=== PATIENT | female | born 1950 | race Caucasian/White ===

== ENCOUNTER 2018-06-20 06:24 | Day surgery (SDC) | payer MEDICARE, OTHER ==
[2018-06-19 12:06] LABS: BASOPHILS # (AUTO) 0.1 X10'3 (0-0.2); BASOPHILS % (AUTO) 0.7 % (0-1); EOSINOPHILS # (AUTO) 0.5 X10'3 (0-0.9); EOSINOPHILS % (AUTO) 7.1 % (0-6); HEMATOCRIT 34.9 % (35.0-45.0); HEMOGLOBIN 11.8 g/dl (12.0-16.0); LYMPHOCYTES # (AUTO) 1.9 X10'3 (1.1-4.8); LYMPHOCYTES % (AUTO) 25.6 % (21-51); MEAN CORPUSCULAR HEMOGLOBIN 30.6 PG (27.0-31.0); MEAN CORPUSCULAR HGB CONC 33.8 g/dL (33.0-36.5); MEAN CORPUSCULAR VOLUME 90.6 FL (78-98); MEAN PLATELET VOLUME 7.2 FL (7.4-10.4); MONOCYTES # (AUTO) 0.3 X10'3 (0-0.9); MONOCYTES % (AUTO) 3.9 % (2-12); NEUTROPHILS # (AUTO) 4.7 X10'3 (1.8-7.7); NEUTROPHILS % (AUTO) 62.7 % (42-75); PLATELET COUNT 196 X10'3 (140-440); RED BLOOD COUNT 3.85 X10'6 (4.20-5.60); WHITE BLOOD COUNT 7.6 X10'3 (4.5-11.0)
[2018-06-19 12:12] LABS: ALBUMIN 3.3 G/DL (3.4-5.0); ANION GAP 7 (8-16); BLOOD UREA NITROGEN 13 MG/DL (7-18); CALCIUM 9.7 MG/DL (8.5-10.1); CHLORIDE 107 MMOL/L (99-107); CREATININE 0.81 MG/DL (0.40-0.90); GLUCOSE 96 MG/DL (70-104); SODIUM 141 MMOL/L (135-145); TOTAL CARBON DIOXIDE 26.7 MMOL/L (24-32); eGFR 71 ML/MIN
[2018-06-19 12:20] LABS: PARTIAL THROMBOPLASTIN TIME 25 SECONDS (22-32)
[~2018-06-20] VITALS: Ht 167.6 cm; Wt 85.8 kg
[2018-06-20] VITALS (8 sets, daily range): BP systolic 133–205; BP diastolic 94–110
[2018-06-20] MEDS ORDERED: normal saline 1,000 ML IV SCH (06:55)
[2018-06-20] MEDS ORDERED: diphenhydrAMINE 25mg capsule PO PRN (06:55)
[2018-06-20] MEDS ORDERED: LORazepam 0.5 MG tablet PO PRN (06:55)
[2018-06-20] MEDS ORDERED: ATOM25CA PO (07:33)
[2018-06-20] MEDS ORDERED: QUET400T PO (07:33)
[2018-06-20] MEDS ORDERED: CHOL50004 PO (07:33)
[2018-06-20] MEDS ORDERED: LISI-600 PO (07:33)
[2018-06-20] MEDS ORDERED: ATOR80TA PO (07:33)
[2018-06-20] MEDS ORDERED: ESCI20TA PO (07:33)
[2018-06-20] MEDS ORDERED: MULT-1085 PO (07:33)
[2018-06-20] MEDS ORDERED: GABA-534 PO (07:33)
[2018-06-20] MEDS ORDERED: ASPI-611 PO (07:33)
[2018-06-20] MEDS ORDERED: pneumococcal 23-VAL P-sac vacc 25 mcg/0.5ml vial IMVAC ONE (08:30)
[2018-06-20] MEDS ORDERED: fentaNYL/PF 50MCG/1 ML 2ML syringe ONE (09:27)
[2018-06-20] MEDS ORDERED: midazolam 2 mg/2 ml injection ONE (09:27)
[2018-06-20] MEDS ORDERED: heparin 1,000 UNITS/NS 500ml 500 ML ONE (09:27)
[2018-06-20] MEDS ORDERED: iohexol 350MG/ML 100ml bottle IV ONE (09:27)
[2018-06-20] MEDS ORDERED: LIDOcaine 1% (10mg/ml)w/preservative injection 20ml MDV ONE (09:27)
[2018-06-20] MEDS ORDERED: HYDROcodone/acetaminophen 10/325mg tab PO PRN (10:50)
[2018-06-20] MEDS ORDERED: proCHLORperazine 10 MG/2 ml inj IV PRN (10:50)
[2018-06-20] MEDS ORDERED: ondansetron/PF 4mg/2ml inj IV PRN (10:50)
[2018-06-20] MEDS ORDERED: HYDROcodone/acetaminophen 5mg/325mg tablet PO PRN (10:50)
[2018-06-20] MEDS ORDERED: OXAZEpam 15mg capsule PO PRN (10:50)
== END 2018-06-20 13:30 | disposition home or self-care (01) ==
LOC: SSTAY O 06:24
PROVIDERS: ATTEND Internal Medicine Interventional Cardiology
DX: R07.2 Precordial pain (principal); I10 Essential (primary) hypertension; G47.33 Obstructive sleep apnea (adult) (pediatric); I27.20 Pulmonary hypertension, unspecified; Z88.8 Allergy status to other drugs, medicaments and biological substances; Z85.3 Personal history of malignant neoplasm of breast; Z79.82 Long term (current) use of aspirin; Z79.899 Other long term (current) drug therapy; E78.5 Hyperlipidemia, unspecified
CPT/HCPCS: 36415; 80048; 85025; 85610; 85730; 93005; 93460; 99152; 99153; A6257; J1644; J2001; J2250; J3010; J7030; Q0163; Q9967; A4620; C1760; C1769